=== PATIENT | male | born 1995 | race Hispanic/Latino ===

== ENCOUNTER → 2024-06-11 13:46 | Outpatient (REF) | payer BC, SELFPAY | LOC: HWRAD 13:46 | PROVIDERS: ATTENDING PHYSICIAN Surgery; FAMILY PHYSICIAN Nurse Practitioner Family | DX: K40.90 Unilateral inguinal hernia, without obstruction or gangrene, not specified as recurrent (principal) | CPT/HCPCS: 74177; Q9967 ==

== ENCOUNTER → 2025-01-27 10:13 | Outpatient (REF) | payer BC, SELFPAY | LOC: RAD 10:13 | PROVIDERS: ATTENDING PHYSICIAN Nurse Practitioner Family | DX: N50.819 Testicular pain, unspecified (principal); N50.89 Other specified disorders of the male genital organs | CPT/HCPCS: 76870; 93976 ==